=== PATIENT | male | born 1975 | race Asian ===

== ENCOUNTER 2018-07-28 08:00 | Emergency (ER) | payer OTHER ==
[~2018-07-28] VITALS: Ht 177.8 cm; Wt 118.5 kg
--- NOTE | 2018-07-28 08:24 | NUR ---
pt presented to ed with left foot pain and bump on left foot. pt states he has a history of gout and thinks this may be gout. pt a&ox4. assessement completed. blood pressure rechecked 132/91.
[2018-07-28 08:28] VITALS: BP 132/91
[2018-07-28] MEDS ORDERED: KETOROLAC 30 MG/1 ML ONE (08:57)
[2018-07-28] MEDS ORDERED: KETOROLAC 30 MG/1 ML IM ONE (09:00)
[2018-07-28] MEDS ORDERED: OXYcodone/APAP 5/325MG TABLET PO ONE (09:30)
[2018-07-28] MEDS ORDERED: OXYcodone/APAP 5/325MG TABLET ONE (09:35)
--- NOTE | 2018-07-28 09:43 | NUR ---
UNABLE TO SCAN PERCOCET.
== END 2018-07-28 10:24 | disposition home or self-care (01) ==
LOC: ED 09:39
DX: M19.072 Primary osteoarthritis, left ankle and foot (principal)
CPT/HCPCS: 73630; 96372; 99283; J1885

== ENCOUNTER 2020-05-25 15:02 | Emergency (ER) | payer OTHER ==
[~2020-05-25] VITALS: Ht 177.8 cm; Wt 123.0 kg
[2020-05-25 16:20] LABS: BASOPHILS % (AUTO) 0 % (0-1); EOSINOPHILS % (AUTO) 1 % (1-7); LYMPHOCYTES % (AUTO) 15 % (22-44); MD NO; MEAN CORPUSCULAR HEMOGLOBIN 29.9 pg (27.5-34.5); MEAN CORPUSCULAR HGB CONC 33.6 g/dL (33.2-36.2); MEAN PLATELET VOLUME 7.4 fL (7.4-10.4); MONOCYTES % (AUTO) 14 % (2-9); NEUTROPHILS % (AUTO) 70 % (42-75); PLATELET COUNT 353 x10^3/uL (130-400); RED BLOOD COUNT 5.25 x10^6/uL (4.38-5.82); RED CELL DISTRIBUTION WIDTH 15.6 % (9.4-14.8)
[2020-05-25 16:30] LABS: ALANINE AMINOTRANSFERASE 20 U/L (12-78); ALBUMIN 3.4 g/dL (3.4-5.0); ANION GAP 4 mmol/L (5-15); CHLORIDE 108 mmol/L (98-107); CREATININE 0.99 mg/dL (0.7-1.3)
--- NOTE | 2020-05-25 16:32 | NUR ---
NPS: PT TO ROOM FROM LOBBY VIA W/C
[2020-05-25 16:33] LABS: ALKALINE PHOSPHATASE 98 U/L (45-117); BILIRUBIN,TOTAL 0.5 mg/dL (0.2-1.0)
[2020-05-25] MEDS ORDERED: COLCHICINE 0.6 MG CAPSULE ONE (16:59)
[2020-05-25] MEDS ORDERED: COLCHICINE 0.6 MG CAPSULE PO ONE (17:00)
[2020-05-25] MEDS ORDERED: PLEASE ENTER HEIGHT AND WEIGHT MC SCH (17:00)
[2020-05-25 17:24] VITALS: BP 145/89
== END 2020-05-25 17:26 | disposition home or self-care (01) ==
LOC: ED 17:20
DX: M10.072 Idiopathic gout, left ankle and foot (principal); M10.071 Idiopathic gout, right ankle and foot
CPT/HCPCS: 36415; 80053; 84550; 85025; 99284

== ENCOUNTER 2020-07-23 13:10 | Emergency (ER) | payer OTHER ==
[~2020-07-23] VITALS: Ht 177.8 cm; Wt 119.0 kg
[2020-07-23] MEDS ORDERED: INDO50CA15 PO (13:26)
[2020-07-23] MEDS ORDERED: ALLO100T30 PO (13:26)
--- NOTE | 2020-07-23 13:56 | NUR ---
Report from ELISA Perdomo. Assumed care.
--- NOTE | 2020-07-23 14:04 | NUR ---
Provider at bedside.
[2020-07-23 14:22] VITALS: BP 133/88
--- NOTE | 2020-07-23 14:47 | NUR ---
Pt agrees with and understands discharge plan, instructions and prescriptions.
== END 2020-07-23 14:48 | disposition home or self-care (01) ==
LOC: ED 14:28
DX: M25.522 Pain in left elbow (principal); M25.532 Pain in left wrist; M25.561 Pain in right knee; M10.9 Gout, unspecified
CPT/HCPCS: 99283